=== PATIENT | male | born 1940 | race Caucasian/White ===

== ENCOUNTER 2017-07-31 09:06 | Emergency (ER) | payer OTHER, MEDICARE ==
[~2017-07-31] VITALS: Ht 182.9 cm; Wt 93.1 kg
[~2017-07-31 09:06] MED LIST: ASPI-611 PO; ATOR-2 PO; CARV3.123 PO; CITA20TA19 PO; CLOP75TA33 PO; CYAN500L3 PO; DOCU-28 PO; FENO145T19 PO; HUM7525 SQ; LANTUS SUBCUT; LOSA25TA96 PO; MECL12.5 PO; NITR0.4T48 SL; PANT-47 PO; TAMS0.4C32 PO; XAL0.005OS EACHEYE
[2017-07-31 10:01] LABS: BASOPHILS % (AUTO) 0.2 % (0-1); EOSINOPHILS # (AUTO) 0.2 X10'3 (0-0.9); EOSINOPHILS % (AUTO) 2.1 % (0-6); HEMATOCRIT 35.9 % (42.0-52.0); HEMOGLOBIN 12.3 g/dl (14.0-17.9); LYMPHOCYTES # (AUTO) 1.1 X10'3 (1.1-4.8); LYMPHOCYTES % (AUTO) 10.9 % (21-51); MEAN CORPUSCULAR HEMOGLOBIN 32.9 PG (27.0-31.0); MEAN CORPUSCULAR HGB CONC 34.2 % (33.0-36.5); MEAN CORPUSCULAR VOLUME 96.3 FL (78-98); MEAN PLATELET VOLUME 7.1 FL (7.4-10.4); MONOCYTES # (AUTO) 0.7 X10'3 (0-0.9); MONOCYTES % (AUTO) 6.9 % (2-12); NEUTROPHILS # (AUTO) 7.8 X10'3 (1.8-7.7); NEUTROPHILS % (AUTO) 79.9 % (42-75); PLATELET COUNT 173 X10'3 (140-440); RED BLOOD COUNT 3.73 X10'6 (4.70-6.10); RED CELL DISTRIBUTION WIDTH 13.8 % (11.5-14.5); WHITE BLOOD COUNT 9.7 X10'3 (4.5-11.0)
[2017-07-31] MEDS ORDERED: ipratropium/albuterol 3ml nebule NEB ONE (10:05)
[2017-07-31 10:17] LABS: ALANINE AMINOTRANSFERASE 45 U/L (12-78); ALBUMIN 3.5 G/DL (3.4-5.0); ALBUMIN/GLOBULIN RATIO 0.9 (1.1-1.5); ALKALINE PHOSPHATASE 91 IU/L (46-116); ANION GAP 8 (8-16); ASPARTATE AMINO TRANSFERASE 39 U/L (10-37); BILIRUBIN,TOTAL 0.5 MG/DL (0.1-1.0); BLOOD UREA NITROGEN 28 MG/DL (7-18); BUN/CREATININE RATIO 16.4 (5.4-32.0); CALCIUM 8.5 MG/DL (8.5-10.1); CHLORIDE 95 MMOL/L (99-107); CREATININE 1.71 MG/DL (0.60-1.10); GLUCOSE 194 MG/DL (70-104); POTASSIUM 3.3 MMOL/L (3.5-5.1); SODIUM 133 MMOL/L (135-145); TOTAL CARBON DIOXIDE 30.3 MMOL/L (24-32); TOTAL PROTEIN 7.6 G/DL (6.4-8.2); eGFR 39 ML/MIN
[2017-07-31 10:25] LABS: MAGNESIUM 1.7 MG/DL (1.5-2.4)
[2017-07-31] MEDS ORDERED: normal saline 1000ML IV soln IVB ONE (11:50)
[2017-07-31] MEDS ORDERED: oseltamivir phos 75mg capsule PO ONE (13:10)
[2017-07-31] MEDS ORDERED: TAM75C PO (13:14)
[2017-07-31] MEDS ORDERED: ALBU8HFA PO (13:14)
[2017-07-31 14:03] VITALS: BP 111/49
== END 2017-07-31 14:08 | disposition home or self-care (01) ==
LOC: ER 09:08
DX: J11.1 Influenza due to unidentified influenza virus with other respiratory manifestations (principal); I10 Essential (primary) hypertension; I25.10 Atherosclerotic heart disease of native coronary artery without angina pectoris; E11.9 Type 2 diabetes mellitus without complications; I25.2 Old myocardial infarction; Z98.890 Other specified postprocedural states; Z79.82 Long term (current) use of aspirin; Z79.4 Long term (current) use of insulin; Z79.899 Other long term (current) drug therapy
CPT/HCPCS: 36415; 71046; 80053; 83605; 83735; 83880; 84484; 85025; 87040; 87502; 87503; 93005; 94640; 94760; 96360; 96361; 99285; J7030